=== PATIENT | female | born 1945 | race African-American/Black ===

== ENCOUNTER 2025-01-15 04:56 | Inpatient (IN) | payer OTHER ==
[2025-01-15] MEDS ORDERED: hydrALAZINE 20 MG/ML VIAL SLOW IVP PRN (06:19)
[2025-01-15] MEDS ORDERED: Communication Order-Pharmacy FS SCH (06:19)
[2025-01-15] MEDS ORDERED: Enoxaparin 40 MG (0.4 mL) SYRINGE SC SCH (09:00)
[2025-01-15] MEDS: Furosemide 40 MG (4 mL) VIAL SLOW IVP SCH (09:55)
[2025-01-15 11:12] LABS: Bacteria/HPF None Seen HPF (None Seen); CAUTI Indications for Culture Alt mental st,lethar; Glucose, Urine (Dipstick) Normal (Negative); Leukocyte Negative Leu/uL (Negative); Protein, Urine (Dipstick) Negative (Neg-Trace); RBC/HPF None Seen HPF (0-3); Specific Gravity, Urine 1.022 (1.002-1.036); WBC/HPF 0-3 HPF (0-3)
[2025-01-15 11:13] LABS: Urine Culture Reflex No No
[2025-01-15] MEDS: Mupirocin 1 GM TUBE NASAL DECOLONIZATION NASAL SCH (22:08)
[2025-01-16 06:57] LABS: #Basophils 0.07 10x3/uL (0.0-0.2); #Eosinophils 0.05 10x3/uL (0.0-0.7); #Monocytes 1.42 10x3/uL (0.11-0.59); #Neutrophils 5.35 10x3/uL (1.40-6.50); %Basophils 0.9 % (0.0-1.0); %Eosinophils 0.7 % (0.0-10.0); %Lymphocytes 8.8 % (21.0-51.0); %Monocytes 18.7 % (0.0-10.0); %Neutrophils 70.4 % (42.0-75.0); Hematocrit 26.1 % (36.0-47.0); Hemoglobin 7.7 g/dL (12.0-16.0); Mean Corpuscular Hemoglobin 21.4 pg (27.0-31.0); Mean Corpuscular Volume 72.7 fL (78.0-98.0); Platelet Count 291 10x3/uL (130-400); Red Blood Cell (RBC) Count 3.59 mill/uL (4.20-5.40); White Blood Cell (WBC) Count 7.60 10x3/uL (4.8-10.8)
[2025-01-16 07:03] LABS: ALT (SGPT) 11 U/L (Less than 34); AST (SGOT) 25 U/L (11-34); Albumin 3.1 g/dL (3.1-4.5); Alkaline Phosphatase 121 U/L (40-110); Anion Gap 19 mmol/L (10-20); BUN (Urea Nitrogen) 26 mg/dL (9.8-20.1); Bilirubin, Total 1.4 mg/dL (0.3-1.2); Calc. Creatinine Clearance 83 mL/min (70-130); Calcium 9.6 mg/dL (7.8-10.44); Carbon Dioxide 19 mmol/L (23-31); Chloride 107 mmol/L (98-107); Globulin 4.1 g/dL (2.4-3.5); Glucose 132 mg/dL (83-110); Potassium 4.3 mmol/L (3.5-5.1); Sodium 141 mmol/L (136-145)
[2025-01-16] MEDS ORDERED: Glucagon 1 MG/ML KIT IM PRN (09:06)
[2025-01-16] MEDS: metFORMIN 500 MG TAB PO SCH (21:55)
[2025-01-16] MEDS: Insulin Glargine 30 UNITS/0.3 ML VIAL SC SCH (21:55)
[2025-01-17 04:16] LABS: Hematocrit 23.8 % (36.0-47.0); Hemoglobin 6.7 g/dL (12.0-16.0); Mean Corpuscular Hemoglobin 21.4 pg (27.0-31.0); Mean Corpuscular Volume 76.0 fL (78.0-98.0); Platelet Count 266 10x3/uL (130-400); Red Blood Cell (RBC) Count 3.13 mill/uL (4.20-5.40); White Blood Cell (WBC) Count 7.37 10x3/uL (4.8-10.8)
[2025-01-17 04:38] LABS: ALT (SGPT) 12 U/L (Less than 34); AST (SGOT) 41 U/L (11-34); Albumin 2.9 g/dL (3.1-4.5); Alkaline Phosphatase 116 U/L (40-110); Anion Gap 20 mmol/L (10-20); BUN (Urea Nitrogen) 24 mg/dL (9.8-20.1); Bilirubin, Total 1.1 mg/dL (0.3-1.2); Calc. Creatinine Clearance 80 mL/min (70-130); Calcium 9.0 mg/dL (7.8-10.44); Carbon Dioxide 16 mmol/L (23-31); Chloride 107 mmol/L (98-107); Globulin 4.2 g/dL (2.4-3.5); Glucose 210 mg/dL (83-110); Potassium 4.7 mmol/L (3.5-5.1); Sodium 138 mmol/L (136-145)
[2025-01-17 04:44] LABS: Anisocytosis SLIGHT = 6-15 cells HPF (0-5); Microcytosis SLIGHT = 6-15 cells HPF (0-5); Nucleated RBC (Manual Ct) 1 % (0); Platelet Adequacy Comment Platelets Normal; Poikilocytosis SLIGHT = 6-15 cells HPF (0-5); Polychromasia SLIGHT = 2-3 cells HPF (0-2); Target Cells SLIGHT = 2-5 cells HPF (0-1)
[2025-01-17 09:09] LABS: Hematocrit 23.8 % (36.0-47.0); Hemoglobin 6.9 g/dL (12.0-16.0)
[2025-01-17] MEDS: Insulin Glargine 30 UNITS/0.3 ML VIAL SC SCH (22:30)
[2025-01-17 22:51] LABS: Hematocrit 28.0 % (36.0-47.0); Hemoglobin 8.6 g/dL (12.0-16.0); Platelet Count 281 10x3/uL (130-400)
[2025-01-18 04:26] LABS: #Basophils 0.06 10x3/uL (0.0-0.2); #Eosinophils 0.08 10x3/uL (0.0-0.7); #Monocytes 1.81 10x3/uL (0.11-0.59); #Neutrophils 6.73 10x3/uL (1.40-6.50); %Basophils 0.6 % (0.0-1.0); %Eosinophils 0.8 % (0.0-10.0); %Lymphocytes 7.5 % (21.0-51.0); %Monocytes 19.2 % (0.0-10.0); %Neutrophils 71.4 % (42.0-75.0); Hematocrit 26.0 % (36.0-47.0); Hemoglobin 8.1 g/dL (12.0-16.0); Mean Corpuscular Hemoglobin 22.9 pg (27.0-31.0); Mean Corpuscular Volume 73.7 fL (78.0-98.0); Platelet Count 260 10x3/uL (130-400); Red Blood Cell (RBC) Count 3.53 mill/uL (4.20-5.40); White Blood Cell (WBC) Count 9.44 10x3/uL (4.8-10.8)
[2025-01-18 04:29] LABS: Iron 24 ug/dL (50-170); Iron Binding Capacity, Total 396 mcg/dL (265-497)
[2025-01-18 04:30] LABS: ALT (SGPT) 10 U/L (Less than 34); AST (SGOT) 22 U/L (11-34); Albumin 2.8 g/dL (3.1-4.5); Alkaline Phosphatase 150 U/L (40-110); Anion Gap 15 mmol/L (10-20); BUN (Urea Nitrogen) 25 mg/dL (9.8-20.1); Bilirubin, Total 1.5 mg/dL (0.3-1.2); Calc. Creatinine Clearance 77 mL/min (70-130); Calcium 9.1 mg/dL (7.8-10.44); Carbon Dioxide 22 mmol/L (23-31); Chloride 106 mmol/L (98-107); Globulin 4.1 g/dL (2.4-3.5); Glucose 170 mg/dL (83-110); Iron 22 ug/dL (50-170); Iron Binding Capacity, Total 398 mcg/dL (265-497); Potassium 4.2 mmol/L (3.5-5.1); Sodium 139 mmol/L (136-145)
[2025-01-18 05:18] LABS: Microcytosis SLIGHT = 6-15 cells HPF (0-5); Platelet Adequacy Comment Platelets Normal; Polychromasia SLIGHT = 2-3 cells HPF (0-2); Smudge Cells 3.0 %; Target Cells SLIGHT = 2-5 cells HPF (0-1)
[2025-01-18] MEDS: Pantoprazole 40 MG DR.TAB PO SCH (11:56)
[2025-01-18] MEDS: GoLYTELY 4,000 ml Bottle PO SCH (18:47)
[2025-01-19 03:59] LABS: #Basophils 0.07 10x3/uL (0.0-0.2); #Eosinophils 0.11 10x3/uL (0.0-0.7); #Monocytes 1.71 10x3/uL (0.11-0.59); #Neutrophils 5.66 10x3/uL (1.40-6.50); %Basophils 0.8 % (0.0-1.0); %Eosinophils 1.3 % (0.0-10.0); %Lymphocytes 9.4 % (21.0-51.0); %Monocytes 20.5 % (0.0-10.0); %Neutrophils 67.8 % (42.0-75.0); Hematocrit 28.6 % (36.0-47.0); Hemoglobin 8.4 g/dL (12.0-16.0); Mean Corpuscular Hemoglobin 22.5 pg (27.0-31.0); Mean Corpuscular Volume 76.5 fL (78.0-98.0); Platelet Count 274 10x3/uL (130-400); Red Blood Cell (RBC) Count 3.74 mill/uL (4.20-5.40); White Blood Cell (WBC) Count 8.36 10x3/uL (4.8-10.8)
[2025-01-19 04:09] LABS: ALT (SGPT) 10 U/L (Less than 34); AST (SGOT) 23 U/L (11-34); Albumin 3.2 g/dL (3.1-4.5); Alkaline Phosphatase 134 U/L (40-110); Anion Gap 19 mmol/L (10-20); BUN (Urea Nitrogen) 25 mg/dL (9.8-20.1); Bilirubin, Total 1.5 mg/dL (0.3-1.2); Calc. Creatinine Clearance 71 mL/min (70-130); Calcium 9.2 mg/dL (7.8-10.44); Carbon Dioxide 23 mmol/L (23-31); Chloride 104 mmol/L (98-107); Globulin 4.1 g/dL (2.4-3.5); Glucose 128 mg/dL (83-110); Potassium 4.2 mmol/L (3.5-5.1); Sodium 142 mmol/L (136-145)
[2025-01-19 04:23] LABS: Anisocytosis SLIGHT = 6-15 cells HPF (0-5); Microcytosis SLIGHT = 6-15 cells HPF (0-5); Platelet Adequacy Comment Platelets Normal; Polychromasia SLIGHT = 2-3 cells HPF (0-2)
[2025-01-19] MEDS: TADALAFIL 5 MG PO SCH (09:00)
[2025-01-19] MEDS ORDERED: PROPOFOL 40 ML ONE (10:44)
[2025-01-19] MEDS ORDERED: Glycopyrrolate 0.2 MG/ML 5 ML SYRINGE ONE (11:40)
[2025-01-19] MEDS ORDERED: PHENYLEPHRINE-NS 100 MCG/ML 10 ML SYRINGE ONE (11:40)
[2025-01-19] MEDS: Dextrose 50% Abboject 50 ML SYRINGE SLOW IVP PRN (13:31)
[2025-01-19 14:26] LABS: INR-International Normal Ratio 1.3; Prothrombin Time 16.4 sec (12.0-14.7)
[2025-01-19 14:59] LABS: HBSAB Concentration 98.02 mIU/mL; Hep B Surf Ag NONREACTIVE S/CO (NonReactive); Hep C IgG Ab NONREACTIVE S/CO (NonReactive); Hep C Index 0.07 S/CO (0-0.79)
[2025-01-20 04:03] LABS: #Basophils 0.06 10x3/uL (0.0-0.2); #Eosinophils 0.08 10x3/uL (0.0-0.7); #Monocytes 1.34 10x3/uL (0.11-0.59); #Neutrophils 5.90 10x3/uL (1.40-6.50); %Basophils 0.8 % (0.0-1.0); %Eosinophils 1.0 % (0.0-10.0); %Lymphocytes 6.7 % (21.0-51.0); %Monocytes 16.9 % (0.0-10.0); %Neutrophils 74.2 % (42.0-75.0); Hematocrit 27.5 % (36.0-47.0); Hemoglobin 8.1 g/dL (12.0-16.0); Mean Corpuscular Hemoglobin 22.3 pg (27.0-31.0); Mean Corpuscular Volume 75.8 fL (78.0-98.0); Platelet Count 262 10x3/uL (130-400); Red Blood Cell (RBC) Count 3.63 mill/uL (4.20-5.40); White Blood Cell (WBC) Count 7.94 10x3/uL (4.8-10.8)
[2025-01-20 04:20] LABS: ALT (SGPT) 9 U/L (Less than 34); AST (SGOT) 24 U/L (11-34); Albumin 2.9 g/dL (3.1-4.5); Alkaline Phosphatase 115 U/L (40-110); Anion Gap 19 mmol/L (10-20); BUN (Urea Nitrogen) 23 mg/dL (9.8-20.1); Bilirubin, Total 1.3 mg/dL (0.3-1.2); Calc. Creatinine Clearance 83 mL/min (70-130); Calcium 8.8 mg/dL (7.8-10.44); Carbon Dioxide 21 mmol/L (23-31); Chloride 105 mmol/L (98-107); Globulin 3.7 g/dL (2.4-3.5); Glucose 105 mg/dL (83-110); Potassium 3.7 mmol/L (3.5-5.1); Sodium 141 mmol/L (136-145)
[2025-01-20 06:14] LABS: Hepatitis A Total ABS Positive (Negative)
[2025-01-20] MEDS: Pantoprazole 40 MG DR.TAB PO SCH (21:02)
[2025-01-21 04:06] LABS: #Basophils 0.05 10x3/uL (0.0-0.2); #Eosinophils 0.08 10x3/uL (0.0-0.7); #Monocytes 1.83 10x3/uL (0.11-0.59); #Neutrophils 6.94 10x3/uL (1.40-6.50); %Basophils 0.5 % (0.0-1.0); %Eosinophils 0.8 % (0.0-10.0); %Lymphocytes 6.9 % (21.0-51.0); %Monocytes 19.1 % (0.0-10.0); %Neutrophils 72.4 % (42.0-75.0); Hematocrit 25.5 % (36.0-47.0); Hemoglobin 7.7 g/dL (12.0-16.0); Mean Corpuscular Hemoglobin 22.6 pg (27.0-31.0); Mean Corpuscular Volume 74.8 fL (78.0-98.0); Platelet Count 259 10x3/uL (130-400); Red Blood Cell (RBC) Count 3.41 mill/uL (4.20-5.40); White Blood Cell (WBC) Count 9.59 10x3/uL (4.8-10.8)
[2025-01-21 04:32] LABS: ALT (SGPT) 9 U/L (Less than 34); AST (SGOT) 23 U/L (11-34); Albumin 2.7 g/dL (3.1-4.5); Alkaline Phosphatase 119 U/L (40-110); Anion Gap 13 mmol/L (10-20); BUN (Urea Nitrogen) 21 mg/dL (9.8-20.1); Bilirubin, Total 1.2 mg/dL (0.3-1.2); Calc. Creatinine Clearance 89 mL/min (70-130); Calcium 8.8 mg/dL (7.8-10.44); Carbon Dioxide 24 mmol/L (23-31); Chloride 105 mmol/L (98-107); Globulin 4.1 g/dL (2.4-3.5); Glucose 44 mg/dL (83-110); Potassium 3.6 mmol/L (3.5-5.1); Sodium 138 mmol/L (136-145)
[2025-01-21 04:51] LABS: Anisocytosis SLIGHT = 6-15 cells HPF (0-5); Microcytosis SLIGHT = 6-15 cells HPF (0-5); Platelet Adequacy Comment Platelets Normal; Polychromasia SLIGHT = 2-3 cells HPF (0-2)
[2025-01-21] MEDS ORDERED: Ibuprofen 600 MG TAB PO PRN (05:33)
[2025-01-21 13:14] LABS: Smooth Muscle Total ABS 9 Units (0-19)
[2025-01-21 16:45] VITALS: BMI 42.3
[2025-01-21] MEDS: Insulin Glargine 30 UNITS/0.3 ML VIAL SC SCH (21:58)
[2025-01-22 04:59] LABS: Anion Gap 15 mmol/L (10-20); BUN (Urea Nitrogen) 24 mg/dL (9.8-20.1); Calc. Creatinine Clearance 76 mL/min (70-130); Carbon Dioxide 22 mmol/L (23-31); Chloride 104 mmol/L (98-107); Potassium 4.1 mmol/L (3.5-5.1); Sodium 137 mmol/L (136-145)
[2025-01-22 05:00] LABS: ALT (SGPT) 11 U/L (Less than 34); AST (SGOT) 25 U/L (11-34); Albumin 2.7 g/dL (3.1-4.5); Alkaline Phosphatase 139 U/L (40-110); Bilirubin, Total 1.2 mg/dL (0.3-1.2); Calcium 8.6 mg/dL (7.8-10.44); Globulin 4.2 g/dL (2.4-3.5); Glucose 163 mg/dL (83-110)
[2025-01-22 05:51] LABS: #Basophils 0.09 10x3/uL (0.0-0.2); #Eosinophils 0.09 10x3/uL (0.0-0.7); #Monocytes 1.37 10x3/uL (0.11-0.59); #Neutrophils 5.84 10x3/uL (1.40-6.50); %Basophils 1.1 % (0.0-1.0); %Eosinophils 1.1 % (0.0-10.0); %Lymphocytes 9.1 % (21.0-51.0); %Monocytes 16.8 % (0.0-10.0); %Neutrophils 71.7 % (42.0-75.0); Hematocrit 25.6 % (36.0-47.0); Hemoglobin 7.5 g/dL (12.0-16.0); Mean Corpuscular Hemoglobin 22.4 pg (27.0-31.0); Mean Corpuscular Volume 76.4 fL (78.0-98.0); Platelet Count 251 10x3/uL (130-400); Red Blood Cell (RBC) Count 3.35 mill/uL (4.20-5.40); White Blood Cell (WBC) Count 8.15 10x3/uL (4.8-10.8)
[2025-01-22] MEDS ORDERED: IRON SUCROSE COMPLEX 100 MG/5 ML SLOW IVP SCH (10:15)
[2025-01-22] MEDS: Furosemide 40 MG (4 mL) VIAL SLOW IVP SCH (11:27)
[2025-01-22] MEDS: Carvedilol 25 MG TAB PO SCH (16:44)
[2025-01-22 19:22] LABS: Hematocrit 30.9 % (36.0-47.0); Hemoglobin 9.3 g/dL (12.0-16.0)
[2025-01-23 04:25] LABS: #Basophils 0.05 10x3/uL (0.0-0.2); #Eosinophils 0.09 10x3/uL (0.0-0.7); #Monocytes 1.31 10x3/uL (0.11-0.59); #Neutrophils 5.60 10x3/uL (1.40-6.50); %Basophils 0.7 % (0.0-1.0); %Eosinophils 1.2 % (0.0-10.0); %Lymphocytes 7.4 % (21.0-51.0); %Monocytes 17.1 % (0.0-10.0); %Neutrophils 73.1 % (42.0-75.0); Hematocrit 26.8 % (36.0-47.0); Hemoglobin 8.3 g/dL (12.0-16.0); Mean Corpuscular Hemoglobin 23.5 pg (27.0-31.0); Mean Corpuscular Volume 75.9 fL (78.0-98.0); Platelet Count 223 10x3/uL (130-400); Red Blood Cell (RBC) Count 3.53 mill/uL (4.20-5.40); White Blood Cell (WBC) Count 7.66 10x3/uL (4.8-10.8)
[2025-01-23 05:16] LABS: ALT (SGPT) 9 U/L (Less than 34); AST (SGOT) 26 U/L (11-34); Albumin 2.7 g/dL (3.1-4.5); Alkaline Phosphatase 135 U/L (40-110); Anion Gap 15 mmol/L (10-20); BUN (Urea Nitrogen) 28 mg/dL (9.8-20.1); Bilirubin, Total 1.6 mg/dL (0.3-1.2); Calc. Creatinine Clearance 69 mL/min (70-130); Calcium 8.5 mg/dL (7.8-10.44); Carbon Dioxide 22 mmol/L (23-31); Chloride 106 mmol/L (98-107); Globulin 3.7 g/dL (2.4-3.5); Glucose 160 mg/dL (83-110); Potassium 4.0 mmol/L (3.5-5.1); Sodium 139 mmol/L (136-145)
[2025-01-23 11:51] LABS: EliA Vaculitis New Method **** NEW METHOD ****; Mitochondrial Ab 2.6 U/mL (<4 Negative)
[2025-01-23 14:11] VITALS: BMI 42.5
[2025-01-23] MEDS: Spironolactone 25 MG TAB PO SCH (16:30)
[2025-01-24 04:09] LABS: #Basophils 0.06 10x3/uL (0.0-0.2); #Eosinophils 0.12 10x3/uL (0.0-0.7); #Monocytes 1.11 10x3/uL (0.11-0.59); #Neutrophils 5.94 10x3/uL (1.40-6.50); %Basophils 0.8 % (0.0-1.0); %Eosinophils 1.5 % (0.0-10.0); %Lymphocytes 6.7 % (21.0-51.0); %Monocytes 14.2 % (0.0-10.0); %Neutrophils 76.2 % (42.0-75.0); Hematocrit 27.5 % (36.0-47.0); Hemoglobin 8.4 g/dL (12.0-16.0); Mean Corpuscular Hemoglobin 23.0 pg (27.0-31.0); Mean Corpuscular Volume 75.3 fL (78.0-98.0); Platelet Count 229 10x3/uL (130-400); Red Blood Cell (RBC) Count 3.65 mill/uL (4.20-5.40); White Blood Cell (WBC) Count 7.80 10x3/uL (4.8-10.8)
[2025-01-24 04:31] LABS: ALT (SGPT) 10 U/L (Less than 34); AST (SGOT) 29 U/L (11-34); Albumin 2.8 g/dL (3.1-4.5); Alkaline Phosphatase 135 U/L (40-110); Anion Gap 14 mmol/L (10-20); BUN (Urea Nitrogen) 28 mg/dL (9.8-20.1); Bilirubin, Total 1.3 mg/dL (0.3-1.2); Calc. Creatinine Clearance 75 mL/min (70-130); Calcium 8.6 mg/dL (7.8-10.44); Carbon Dioxide 23 mmol/L (23-31); Chloride 105 mmol/L (98-107); Globulin 4.0 g/dL (2.4-3.5); Glucose 57 mg/dL (83-110); Potassium 4.3 mmol/L (3.5-5.1); Sodium 138 mmol/L (136-145)
[2025-01-24] MEDS ORDERED: Furosemide 40 MG TAB PO SCH (07:30)
[2025-01-24] MEDS: Furosemide 20 MG TAB PO SCH ×2 (09:36→12:22)
[2025-01-24] MEDS: Sodium Ferric Gluconate 250 MG in Sodium Chloride 0.9% 250 ML 250 ML IVPB SCH (12:22)
[2025-01-25 03:44] LABS: #Basophils 0.07 10x3/uL (0.0-0.2); #Eosinophils 0.09 10x3/uL (0.0-0.7); #Monocytes 1.18 10x3/uL (0.11-0.59); #Neutrophils 5.37 10x3/uL (1.40-6.50); %Basophils 1.0 % (0.0-1.0); %Eosinophils 1.2 % (0.0-10.0); %Lymphocytes 7.7 % (21.0-51.0); %Monocytes 16.2 % (0.0-10.0); %Neutrophils 73.6 % (42.0-75.0); Hematocrit 28.8 % (36.0-47.0); Hemoglobin 8.6 g/dL (12.0-16.0); Mean Corpuscular Hemoglobin 22.9 pg (27.0-31.0); Mean Corpuscular Volume 76.8 fL (78.0-98.0); Platelet Count 228 10x3/uL (130-400); Red Blood Cell (RBC) Count 3.75 mill/uL (4.20-5.40); White Blood Cell (WBC) Count 7.29 10x3/uL (4.8-10.8)
[2025-01-25 04:06] LABS: ALT (SGPT) 12 U/L (Less than 34); AST (SGOT) 28 U/L (11-34); Albumin 2.6 g/dL (3.1-4.5); Alkaline Phosphatase 151 U/L (40-110); Anion Gap 14 mmol/L (10-20); BUN (Urea Nitrogen) 31 mg/dL (9.8-20.1); Bilirubin, Total 1.3 mg/dL (0.3-1.2); Calc. Creatinine Clearance 77 mL/min (70-130); Calcium 8.7 mg/dL (7.8-10.44); Carbon Dioxide 22 mmol/L (23-31); Chloride 103 mmol/L (98-107); Globulin 4.1 g/dL (2.4-3.5); Glucose 163 mg/dL (83-110); Potassium 4.4 mmol/L (3.5-5.1); Sodium 135 mmol/L (136-145)
[2025-01-25] MEDS ORDERED: Insulin Glargine 30 UNITS/0.3 ML VIAL SC SCH (09:00)
[2025-01-25] MEDS: Furosemide 40 MG TAB PO SCH (09:23)
[2025-01-25] MEDS: Insulin Glargine 30 UNITS/0.3 ML VIAL SC SCH (09:24)
[2025-01-25 17:08] VITALS: BP 119/52; TEMP 97.4
== END 2025-01-25 17:36 | DRG 61 ==
LOC: ERS 04:56 → ERHOLD 05:40 → CCU 06:36 → 2SE 01-16 13:44
PROVIDERS: ADMIT Family Medicine; ATTEND Family Medicine
PROC: 3E03317 Introduction of Other Thrombolytic into Peripheral Vein, Percutaneous Approach (ICD-10-PCS; principal; 2025-01-15)
PROC: 0T9B70Z Drainage of Bladder with Drainage Device, Via Natural or Artificial Opening (ICD-10-PCS; 2025-01-16)
PROC: 30233N1 Transfusion of Nonautologous Red Blood Cells into Peripheral Vein, Percutaneous Approach (ICD-10-PCS; 2025-01-17)
PROC: 0DB78ZX Excision of Stomach, Pylorus, Via Natural or Artificial Opening Endoscopic, Diagnostic (ICD-10-PCS; 2025-01-22)
PROC: 06L38CZ Occlusion of Esophageal Vein with Extraluminal Device, Via Natural or Artificial Opening Endoscopic (ICD-10-PCS; 2025-01-22)
DX: I63.9 Cerebral infarction, unspecified (principal); I50.33 Acute on chronic diastolic (congestive) heart failure; S72.101A Unspecified trochanteric fracture of right femur, initial encounter for closed fracture; C34.90 Malignant neoplasm of unspecified part of unspecified bronchus or lung; E87.20 Acidosis, unspecified; N17.9 Acute kidney failure, unspecified; G81.94 Hemiplegia, unspecified affecting left nondominant side; Z68.41 Body mass index [BMI] 40.0-44.9, adult; K76.6 Portal hypertension; I85.10 Secondary esophageal varices without bleeding; B15.9 Hepatitis A without hepatic coma; R29.708 NIHSS score 8; R29.810 Facial weakness; R47.81 Slurred speech; R47.1 Dysarthria and anarthria; I11.0 Hypertensive heart disease with heart failure; D64.9 Anemia, unspecified; E11.9 Type 2 diabetes mellitus without complications; E66.9 Obesity, unspecified; H90.3 Sensorineural hearing loss, bilateral; E04.9 Nontoxic goiter, unspecified; M25.561 Pain in right knee; K74.60 Unspecified cirrhosis of liver; S80.812A Abrasion, left lower leg, initial encounter; I50.810 Right heart failure, unspecified; D50.9 Iron deficiency anemia, unspecified; K25.9 Gastric ulcer, unspecified as acute or chronic, without hemorrhage or perforation; S80.811A Abrasion, right lower leg, initial encounter; I36.1 Nonrheumatic tricuspid (valve) insufficiency; I27.20 Pulmonary hypertension, unspecified; W19.XXXA Unspecified fall, initial encounter; Z90.710 Acquired absence of both cervix and uterus; Z98.890 Other specified postprocedural states; Z79.899 Other long term (current) drug therapy; Z79.84 Long term (current) use of oral hypoglycemic drugs; Z79.4 Long term (current) use of insulin
CPT/HCPCS: 36415; 36416; 36430; 70450; 70551; 76705; 80053; 81001; 82103; 82105; 82274; 82728; 83036; 83516; 83540; 83550; 83605; 85025; 85610; 86015; 86706; 86708; 86803; 86850; 86900; 86901; 87324; 87340; 87449; 88305; 88342; 93306; 97139; 99285; J1815; J1940; J2704; J2916; J7050; J7070; J7120; J7999; P9016